=== PATIENT | female | born 1965 | race Caucasian/White ===

== ENCOUNTER 2017-06-10 13:45 | Emergency (ER) | payer OTHER ==
[2017-06-10 13:54] VITALS: BP 134/86; PULSE 80; RESP 20; TEMP 98.3
--- NOTE | 2017-06-10 14:21 | XR ---
EXAMINATION TYPE: XR finger LT DATE OF EXAM: 06/10/2017 COMPARISON: NONE HISTORY: Left thumb pain. TECHNIQUE: 3 views of left thumb are acquired. FINDINGS: There is no acute fracture or dislocation seen. The joint spaces are preserved. Overlying s oft tissue is unremarkable. IMPRESSION: No acute fracture or dislocation is evident.
--- NOTE | 2017-06-10 14:38 | ED ---
Skin/Abscess/FB HPI - General Chief complaint: Skin/Abscess/Foreign Body Stated complaint: FB in thumb-S Time Seen by Provider: 06/10/17 13:55 Source: patient, RN notes reviewed Mode of arrival: ambulatory Limitations: no limitations - History of Present Illness Initial comments: 52-year-old female presented emergency department to complaint of left thumb pain, possible infection. Patient was sent from [facility] for x-rays and further treatment. Patient states this started over the weekend after she cleaned on the machine that was filled with metal shavings. states her thumb seems to be swollen there is no obvious area of injury. Patient states her tetanus is up-to-date. Patient reports no fevers no paresthesias. Denies any other complaints. - Related Data Previous Rx's Medication Instructions Recorded Acetaminophen-Codeine 300-30mg 1 tab PO Q4H PRN #20 tablet 06/10/17 [Tylenol #3] Ibuprofen [Motrin] 600 mg PO Q8HR PRN #30 tab 06/10/17 Sulfamethox-Tmp 800-160Mg [Bactrim 1 each PO Q12HR #20 tab 06/10/17 Ds] Allergies Allergy/AdvReac Type Severity Reaction Status Date / Time amoxicillin [From Augmentin] Allergy Rash/Hives Verified 06/10/17 13:54 clavulanic acid Allergy Rash/Hives Verified 06/10/17 13:54 [From Augmentin] Review of Systems ROS Statement: Those systems with pertinent positive or pertinent negative responses have been documented in the HPI. ROS Other: All systems not noted in ROS Statement are negative. Past Medical History Past Medical History: No Reported History History of Any Multi-Drug Resistant Organisms: None Reported Additional Past Surgical History / Comment(s): neck surgery Past Psychological History: No Psychological Hx Reported Smoking Status: Current every day smoker Past Alcohol Use History: Occasional Past Drug Use History: None Reported General Exam Limitations: no limitations General appearance: alert, in no apparent distress Head exam: Present: atraumatic, normocephalic, normal inspection Respiratory exam: Present: normal lung sounds bilaterally. Absent: respiratory distress, wheezes, rales, rhonchi, stridor Cardiovascular Exam: Present: regular rate, normal rhythm, normal heart sounds. Absent: systolic murmur, diastolic murmur, rubs, gallop, clicks Extremities exam: Present: other (Left thumb there is tenderness to the dorsal aspect there is no obvious injury or openings. There is no localized abscess. Thumb is neurovascularly intact patient does have tenderness but has full range of motion) Skin exam: Present: warm, dry, intact, normal color. Absent: rash Course Vital Signs 06/10/17 13:51 Temperature 98.3 F Pulse Rate 80 Respiratory 20 Rate Blood Pressure 134/86 O2 Sat by Pulse 98 Oximetry Medical Decision Making - Medical Decision Making 52-year-old female presents from for left thumb pain, infection. There appears to be cellulitis of left thumb there is no evidence of osteomyelitis there is no streaking of the erythema to left thumb. Patient treated with antibiotics, warm soaks and he medication. Return parameters were discussed. Disposition Clinical Impression: Cellulitis of left thumb, Thumb pain Disposition: HOME SELF-CARE Condition: Stable Instructions: Cellulitis (ED) Additional Instructions: Please return to the Emergency Department if symptoms worsen or any other concerns. Prescriptions: Acetaminophen-Codeine 300-30mg [Tylenol #3] 1 tab PO Q4H PRN #20 tablet PRN Reason: pain Ibuprofen [Motrin] 600 mg PO Q8HR PRN #30 tab PRN Reason: Pain Sulfamethox-Tmp 800-160Mg [Bactrim Ds] 1 each PO Q12HR #20 tab Referrals: None,Stated [Primary Care Provider] - 1-2 days Time of Disposition: 14:38
== END 2017-06-10 15:04 | disposition home or self-care (01) ==
LOC: EC 13:45
DX: L03.012 Cellulitis of left finger (principal); F17.200 Nicotine dependence, unspecified, uncomplicated; Z88.0 Allergy status to penicillin
CPT/HCPCS: 99283

== ENCOUNTER → 2017-06-19 | Outpatient (CLI) | payer OTHER ==
--- NOTE | 2017-06-19 13:30 | XR ---
EXAMINATION TYPE: XR finger LT DATE OF EXAM: 06/19/2017 COMPARISON: Left finger x-ray 9 days ago. HISTORY: Persistent pain and swelling, fingernail is turning yellow. Cellulitis per order. TECHNIQUE: 3 views left thumb are acquired. FINDINGS: There is no acute fracture or dislocation seen. Bandage material overlying left thumb is pr esent distally. No suspicious cortical destruction or periosteal reaction is seen. Joint spaces are m aintained. No suspicious radiodense foreign body is present. IMPRESSION: As above.
== END | disposition home or self-care (01) ==
LOC: RADXRMAIN 13:01
PROVIDERS: ATTEND Emergency Medicine
DX: L03.012 Cellulitis of left finger (principal)

== ENCOUNTER → 2018-01-27 | Outpatient (CLI) | payer BC ==
[2018-01-27 12:08] LABS: HCT 45.9 % (34.0-46.0); HGB 15.1 gm/dL (11.4-16.0); MCH 30.2 pg (25.0-35.0); MCHC 32.8 g/dL (31.0-37.0); MCV 91.9 fL (80.0-100.0); Mean Platelet Volume 7.1; Platelet Count 287 k/uL (150-450); RBC 4.99 m/uL (3.80-5.40); RDW 13.2 % (11.5-15.5); WBC 6.8 k/uL (3.8-10.6)
[2018-01-27 12:17] LABS: Partial Thromboplastin Time 23.8 sec (22.0-30.0); Prothrombin Time 9.8 sec (9.0-12.0)
[2018-01-27 12:18] LABS: Appearance,Urine Clear (Clear); Bilirubin,Urine Negative (Negative); Blood,Urine Small (Negative); Color,Urine Light Yellow; Glucose,Urine (UA) Negative (Negative); Ketones,Urine Negative (Negative); Leukocyte Esterase,Urine Negative (Negative); Mucus,Urine Rare /hpf; Nitrite,Urine Negative (Negative); Protein,Urine Negative (Negative); Specific Gravity,Urine 1.007 (1.001-1.035); Squamous Epithelial Cell,Urine 3 /hpf (0-4); Urobilinogen,Urine <2.0 mg/dL (<2.0)
[2018-01-27 12:19] LABS: ALT 29 U/L (9-52); AST 24 U/L (14-36); Albumin 3.8 g/dL (3.5-5.0); Alkaline Phosphatase 82 U/L (38-126); Anion Gap 6 mmol/L; Blood Urea Nitrogen 12 mg/dL (7-17); Calcium 9.6 mg/dL (8.4-10.2); Carbon Dioxide 27 mmol/L (22-30); Chloride 107 mmol/L (98-107); Glucose 97 mg/dL (74-99); Potassium 4.9 mmol/L (3.5-5.1); Sodium 140 mmol/L (137-145); Total Bilirubin 0.8 mg/dL (0.2-1.3); Total Protein 6.7 g/dL (6.3-8.2)
== END | disposition home or self-care (01) ==
LOC: LABPAT 10:37
PROVIDERS: ATTEND Orthopaedic Surgery
DX: Z01.818 Encounter for other preprocedural examination (principal); Z01.812 Encounter for preprocedural laboratory examination
CPT/HCPCS: 80053; 81001; 85027; 85610; 85730; 87070; 93005

== ENCOUNTER 2018-02-02 10:23 | Inpatient (IN) | payer BC ==
[2018-01-26 11:45] VITALS: BMI 27.4
[~2018-02-02 10:23] MED LIST: ACETAMINOPHEN TAB 500 MG TAB PO ONE; DEXAMETHASONE SOD PHOSPHATE 10 MG/ML 1 ML VIAL IV ONE; LIDOCAINE 1% 20 ML VIAL (10MG/ML) FOR IV START INTRADERMA PRN; MIDAZOLAM 2 MG/2 ML VIAL IV PRN; ONDANSETRON 4 MG/2 ML VIAL IVP ONE; TRANEXAMIC ACID 1,000 MG in SODIUM CHLORIDE 0.9% 50 ML IVPB ONE; ceFAZolin IN SWFI 2 GM/20 ML SYRINGE IVP ONE; fentaNYL (PF) 50 MCG/ML 2 ML AMP IV PRN
[2018-02-02 13:38] VITALS: RESP 16
[2018-02-02] MEDS ORDERED: ACETAMINOPHEN TAB 325 MG TAB PO ONE (13:54)
[2018-02-02] MEDS: LACTATED RINGERS 1,000 ML IV SCH ×4 (14:02→20:29)
[2018-02-02] MEDS ORDERED: ROPIVACAINE 246.25 MG, EPINEPHrine 0.5 MG, KETOROLAC 30 MG, cloNIDine HCL/PF 80 MCG, WA... MISCELLANE ONE ×5 (14:47)
[2018-02-02] MEDS ORDERED: ceFAZolin 3,000 MG in SODIUM CHLORIDE 0.9% IRRIGATIO 3,000 ML IRRIGATION ONE (16:25)
--- NOTE | 2018-02-02 17:26 | P.OP ---
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 ANESTHESIA: Spinal ESTIMATED BLOOD LOSS: 50 ml. BUILDING PRESSURE WASHER: Gabby Williamson PA-C (assistance with: patient positioning, retraction, exposure, hemostasis, leg positioning, implantation, irrigation, closure, dressing) COMPLICATIONS: None apparent. COMPONENTS IMPLANTED: Persona system from [employer] INDICATIONS: Munira is a 52 year old female with a history of left knee osteoarthritis. She has undergone what sounds like ACL reconstruction several decades ago at the age of 16. Evidently some lateral meniscal work was done too , as she has gone on to develop severe lateral compartment arthritis and genu valgum. Conservative treatment has been tried and has been unsuccessful in controlling symptoms adequately. The operation of knee replacement has been discussed at length in the office, as well as potential risks and complications. These are inclusive of, but not limited to: bleeding, infection , scarring, discomfort, blood vessel and nerve damage, need for further surgery , failure to relieve symptoms, persistence, recurrence, or worsening of problems , loosening, dislocation, wear, blood clot, pulmonary embolism, , gait dysfunction, stiffness, and other risks as discussed in the office. The patient elects to proceed and the consent form has been signed. PROCEDURE: The patient was taken to the operating room and positioned on the operating room table in the supine position. Anesthesia was initiated. Care was taken to make sure that all pressure points were adequately padded. The operative lower extremity was prepped and draped in the usual aseptic fashion using ChloraPrep. Ioban drape was used for the case and the patient received intravenous antibiotics within one hour of the incision. A pneumotourniquet and leg miller were used for the case. The limb was exsanguinated with an Esmarch bandage and the tourniquet was inflated to 350 mmHg. Time-out was called confirming the patient's identity, side, procedure and administration of antibiotics and tranexamic acid, 1 g IV. The incision was then created midline directly over the knee, carried down through skin and into the subcutaneous tissues and down to fascia. Full thickness subcutaneous medial flap was developed. Medial parapatellar arthrotomy was performed and the interior of the knee was inspected. There was end-stage osteoarthritis of the knee especially in the patellofemoral and lateral compartments with a mild to moderate genu valgum type deformity. The fat pad was excised and proximal medial release on the tibia was completed using meticulous dissection and a curved osteotome. The anterior cruciate ligament was taken down. Note was made of significant attrition of the anterior and significant degenerative appearance of the posterior cruciate ligaments. The exposure was excellent. The knee was flexed 90 degrees and the patella was everted. A spot was chosen on the femur approximately 1 cm anterior to the posterior cruciate ligament insertion and an intramedullary hole was created within the femur. The intramedullary guide was then set to 5 degrees of valgus. The distal cutting block was attached and pinned into position. An appropriate amount of distal femoral resection was set. The oscillating saw was then used to make the distal femoral cut. This cut was confirmed to be flat with the flat end of an osteotome. The retractors were placed around the tibia and the tibial surface was addressed. The angle and depth of resection was adjusted using an extramedullary cutting guide. The guide had a built-in 3 degree posterior slope cut. Once the cutting guide was adjusted appropriately and in line with the axis of the tibia and confirmed to be in good position in relation to the second metatarsal and transmalleolar axis, the tibial cut was then created with protection of the posterior neurovascular structures and the collateral ligaments. The tibial cut surface was removed and sized. Femoral sizing was then accomplished using anterior referencing. Care was taken to analyze the posterior condyles for signs of deficiency or severe wear, and adjustments to the guide were made, as appropriate. 3 degree external rotation pins were placed. The cutting jig for the femur was applied to these pins. The planned cuts were further analyzed prior to performing them with the oscillating saw. No femoral notching was produced. Bone fragments were removed and the cut surfaces were finished, as necessary, with a reciprocating saw. Spacer block technique was then used to confirm that the flexion and extension gaps were equal. Soft tissue releases and adjustment of the tibial and/or femoral cuts were made, as necessary, until the gaps were equal. This included release of the posterior cruciate ligament, which was tight in this patient. The femur was then further finished for a posterior cruciate ligament substituting component. Patellar resurfacing was performed using a reamer. The size of the required patellar component was estimated and the patellar surface was then reamed down to a residual thickness which would recreate the [place] thickness with the component. The exact placement of the patellar component was adjusted for position based on preoperative x-rays and intraoperative findings. Prior to placing trial components, anesthetic solution consisting of ropivicaine with epinephrine, ketorolac, and clonidine was injected carefully and methodically in a grid pattern using aspiration technique into the soft tissue around the knee circumferentially, starting with the deeper tissues first and progressing to fascia, and then finally the skin/subcutaneous tissue. Particular care was taken when injecting the posterior capsule. The trial components were inserted. The tibial tray was allowed to self center and the patella was noted to track very well. The position of the tibial component was marked and the tibia was then finished for a stemmed tibial component. Cement was mixed on the back table and applied to the final components. Trial components were removed and the cut surfaces of the bone were pulse lavaged thoroughly and dried. Cement was then applied to the tibial surface and pressurized into the surface using finger pressurization technique. The tibial component was then applied and excess cement was removed after it was impacted securely and noted to be flush with the cut surface. In similar fashion, the cement was applied to the cut femoral surface, pressurized in using finger pressurization and the component was impacted into place. Excess cement was removed. The polyethylene spacer was then implanted and locked into position. The patellar component was then applied in similar technique and a patellar clamp was used to hold the patella in place as the cement hardened. Once the cement had fully hardened, the knee was reinspected. Any other cement extrusion was removed and final kinematic testing showed range of motion from 0 to 130 degrees with excellent stability, both medially and laterally and appropriate alignment of the leg. Patellar tracking was excellent. The knee was then thoroughly pulse lavaged with normal saline. The tourniquet was deflated and hemostasis was obtained with electrocautery and IV tranexamic acid, 1 g given prior to inflation of the tourniquet and another gram given at the time of closure. Closure was with #2 Ethibond in the fascia and supplemented with #2 Quill, 2-0 Vicryl suture was used for the subcutaneous tissues and 3-0 Quill for the skin. Dermabond/Steri-Strips were then applied. A lightly compressive dressing was applied using Webril and an Omero wrap. The patient was then transferred to [facility] and taken to the recovery room in stable condition. Sponge and needle counts were correct.
[2018-02-02] MEDS ORDERED: LACTATED RINGERS 1,000 ML IV ONE (17:30)
[2018-02-02] MEDS ORDERED: NA PHOS,M-B/NA PHOS,DI-BA 133 ML ENEMA RECTAL PRN (18:04)
[2018-02-02] MEDS ORDERED: NALOXONE 0.4 MG/ML 1 ML VIAL IV PRN (18:04)
[2018-02-02] MEDS ORDERED: ONDANSETRON 4 MG/2 ML VIAL IVP PRN (18:04)
[2018-02-02] MEDS ORDERED: MAGNESIUM HYDROXIDE 2,400 MG/10 ML CUP PO PRN (18:04)
[2018-02-02] MEDS ORDERED: HYDROcodone/APAP 5-325MG 1 EACH TAB PO PRN (18:04)
[2018-02-02] MEDS ORDERED: HYDROmorphone 1 MG/ML 1 ML SYRINGE IVP PRN ×3 (18:04)
--- NOTE | 2018-02-02 19:08 | XR ---
Left knee HISTORY: Status post left knee arthroplasty 2 views of the left knee Patient is post left knee arthroplasty. Alignment is anatomic. Lucency in the soft tissues is compati ble with postop state. Small ossific densities in the soft tissues is likely postoperative. IMPRESSION: Orthopedic follow-up.
[2018-02-02] MEDS ORDERED: IPRATROPIUM-ALBUTEROL 3 ML NEB INHALATION PRN (19:19)
[2018-02-02] MEDS: IPRATROPIUM-ALBUTEROL 3 ML NEB INHALATION SCH (20:23)
[2018-02-02] MEDS: PANTOPRAZOLE 40 MG/10 ML VIAL IVP SCH (20:50)
[2018-02-02] MEDS: HYDROcodone/APAP 5-325MG 1 EACH TAB PO PRN (20:52)
[2018-02-02] MEDS: NICOTINE 14MG/24HR PATCH TRANSDERM SCH (20:54)
[2018-02-02] MEDS: hydrOXYzine PAMOATE 25 MG CAP PO PRN (20:54)
[2018-02-02] MEDS ORDERED: SENNOSIDES-DOCUSATE SODIUM 1 EACH TAB PO SCH (21:00)
[2018-02-02] MEDS ORDERED: TEMAZEPAM 15 MG CAP PO PRN (22:00)
[2018-02-02] MEDS: ceFAZolin IN SWFI 2 GM/20 ML SYRINGE IVP SCH (23:44)
[2018-02-03] MEDS: LACTATED RINGERS 1,000 ML IV SCH ×3 (05:16→07:44)
[2018-02-03 07:15] LABS: Basophils % (A) 0 %; Eosinophils % (A) 0 %; HCT 39.9 % (34.0-46.0); Lymphocytes # (A) 1.2 k/uL (1.0-4.8); Lymphocytes % (A) 9 %; MCHC 32.6 g/dL (31.0-37.0); MCV 92.1 fL (80.0-100.0); Mean Platelet Volume 7.3; Monocytes # (A) 0.3 k/uL (0-1.0); Monocytes % (A) 2 %; Neutrophils # (A) 12.5 k/uL (1.3-7.7); Neutrophils % (A) 88 %; Platelet Count 265 k/uL (150-450); RBC 4.33 m/uL (3.80-5.40); RDW 13.1 % (11.5-15.5); WBC 14.1 k/uL (3.8-10.6)
[2018-02-03] MEDS: PANTOPRAZOLE 40 MG/10 ML VIAL IVP SCH (07:39)
[2018-02-03] MEDS: ceFAZolin IN SWFI 2 GM/20 ML SYRINGE IVP SCH (07:40)
[2018-02-03] MEDS: NICOTINE 14MG/24HR PATCH TRANSDERM SCH (07:44)
[2018-02-03 08:18] VITALS: BP 120/80; TEMP 98
[2018-02-03] MEDS: IPRATROPIUM-ALBUTEROL 3 ML NEB INHALATION SCH ×2 (08:39→12:44)
--- NOTE | 2018-02-03 08:40 | P.DS ---
Providers Date of admission: 02/02/18 13:02 Expected date of discharge: 02/03/18 Attending physician: Baltazar Munoz Consults: 02/02/18 18:04 Consult Physician Routine Consulting Provider: Tomer Evans Consult Reason/Comments: Medical management Do you want consulting provider notified?: Yes Primary care physician: Stated None - Discharge Diagnosis(es) (1) Osteoarthritis of left knee Current Visit: Yes Status: Acute (2) Status post total left knee replacement Current Visit: Yes Status: Acute Hospital Course: This is a 52-year-old female last seen in our office with complaints of left knee pain. Patient has known history of degenerative arthritis of the left knee and presented to discuss options. After discussion and consideration, the patient elected to proceed with a left total knee arthroplasty. Patient was seen preoperatively, and medically cleared for surgery by her primary care physician. Patient was admitted to [facility] underwent left total knee arthroplasty on 02/02/[address] Munoz. The procedure was performed without complications or sequelae. The patient is seen and evaluated at bedside today. Pain is well-controlled. Patient has no new complaints today and denies any fevers, chills, nausea, vomiting, or shortness of breath. Vital signs are stable. Dressing is clean dry and intact. Incision looks fine with no erythema or active drainage. Calf is soft and nontender. Patient has full foot and ankle motion without difficulty. Patient's left lower extremity is neurovascularly intact. The patient is orthopedically stable for discharge today. Pertinent Studies: Laboratory Tests 02/03/18 06:38 WBC 14.1 H RBC 4.33 Hgb 13.0 Hct 39.9 Neutrophils # 12.5 H Patient Condition at Discharge: Stable Plan - Discharge Summary Discharge Rx Participant: Yes New Discharge Prescriptions: New HYDROcodone/APAP 5-325MG [[place] 5-325] 1 - 2 each PO Q4-6H PRN #50 tab PRN Reason: Pain Rivaroxaban [Xarelto] 10 mg PO DAILY #5 tab Sennosides-Docusate Sodium [Senokot-S] 1 tab PO BID #60 tablet Aspirin [Adult Low Dose Aspirin EC] 81 mg PO DAILY #1 tablet.dr Harris Action Ibuprofen [Motrin] 600 mg PO Q8HR PRN #30 tab PRN Reason: Pain oxyCODONE HCL/ACETAMINOPHEN [Percocet 10-325 mg] 1 tab PO DAILY PRN PRN Reason: Pain Multivitamins, Thera [Multivitamin (formulary)] 1 tab PO DAILY Ranitidine HCl 150 mg PO DAILY PRN PRN Reason: Heartburn Discharge Medication List Ibuprofen [Motrin] 600 mg PO Q8HR PRN #30 tab 06/10/17 [Rx] Multivitamins, Thera [Multivitamin (formulary)] 1 tab PO DAILY 01/26/18 [History ] Ranitidine HCl 150 mg PO DAILY PRN 01/26/18 [History] oxyCODONE HCL/ACETAMINOPHEN [Percocet 10-325 mg] 1 tab PO DAILY PRN 01/26/18 [ History] Aspirin [Adult Low Dose Aspirin EC] 81 mg PO DAILY #1 tablet.dr 02/02/18 [Rx] HYDROcodone/APAP 5-325MG [[place] 5-325] 1 - 2 each PO Q4-6H PRN #50 tab 02/02/18 [Rx] Rivaroxaban [Xarelto] 10 mg PO DAILY #5 tab 02/02/18 [Rx] Sennosides-Docusate Sodium [Senokot-S] 1 tab PO BID #60 tablet 02/02/18 [Rx] Follow up Appointment(s)/Referral(s): Gabby Williamson, PAC [PHYSICIAN TAKE AWAY WORKER] - 2 Weeks Ambulatory/Diagnostic Orders: Continuous Passive Motion (CPM) Machine [DME.AMB1] Time Frame: 3 Weeks, Facility : [facility], Location: Case Management Activity/Diet/Wound Care/Special Instructions: May bear wt as tolerated. Take Xarelto daily X 5days, then begin ASA 81mg daily. CPM 5-6h daily. May shower if no drainage from incision. Discharge Disposition: HOME WITH HOME HEALTH SERVICES
[2018-02-03 08:43] VITALS: PULSE 88
[2018-02-03] MEDS ORDERED: RIVAROXABAN 10 MG TAB PO SCH (09:00)
[2018-02-03] MEDS ORDERED: MELOXICAM 7.5 MG TAB PO SCH (09:00)
[2018-02-03] MEDS: hydrOXYzine PAMOATE 25 MG CAP PO PRN (11:23)
[2018-02-03] MEDS: HYDROcodone/APAP 5-325MG 1 EACH TAB PO PRN (11:23)
[2018-02-03] MEDS ORDERED: MULTIVITAMINS, THERA 1 EACH TAB PO SCH (12:00)
--- NOTE | 2018-02-03 13:18 | P.CONS ---
History of Present Illness - Reason for Consult Leukocytosis - History of Present Illness Pleasant 52-year-old female admitted the for elective left knee arthroplasty successfully underwent surgery patient denied dysuria nausea vomiting patient doesn't have a drain in place patient denied any cough runny nose. There is no evidence of sepsis leukocytosis secondary to surgery and reactive in nature no further intervention is necessary patient is medically stable to be discharged. Patient the did pass gas did not move her bowel yet Review of Systems REVIEW OF SYSTEMS: CONSTITUTIONAL: No fever, no malaise, no fatigue. HEENT: No recent visual problems or hearing problems. Denied any sore throat. CARDIOVASCULAR: No chest pain, orthopnea, PND, no palpitations, no syncope. PULMONARY: No shortness of breath, no cough, no hemoptysis. GASTROINTESTINAL: No diarrhea, no nausea, no vomiting, no abdominal pain. Normoactive bowel sounds. NEUROLOGICAL: No headaches, no weakness, no numbness. HEMATOLOGICAL: Denies any bleeding or petechiae. GENITOURINARY: Denies any burning micturition, frequency, or urgency. MUSCULOSKELETAL/RHEUMATOLOGICAL: Denies any joint pain, swelling, or any muscle pain. ENDOCRINE: Denies any polyuria or polydipsia. The rest of the 14-point review of systems is negative. Past Medical History Past Medical History: GERD/Reflux Additional Past Medical History / Comment(s): migraines, constipation, hx anemia , History of Any Multi-Drug Resistant Organisms: None Reported Past Surgical History: Back Surgery, Orthopedic Surgery Additional Past Surgical History / Comment(s): ACL left knee, 12/26/16-cervical cage and plate,( no limits in neck movement), Past Anesthesia/Blood Transfusion Reactions: Motion Sickness Smoking Status: Current every day smoker - Past Family History Mother Family Medical History: No Reported History Medications and Allergies Home Medications Medication Instructions Recorded Confirmed Type Ibuprofen [Motrin] 600 mg PO Q8HR PRN #30 tab 06/10/17 02/02/18 Rx Multivitamins, Thera [Multivitamin 1 tab PO DAILY 01/26/18 02/02/18 History (formulary)] Ranitidine HCl 150 mg PO DAILY PRN 01/26/18 02/02/18 History oxyCODONE HCL/ACETAMINOPHEN 1 tab PO DAILY PRN 01/26/18 02/02/18 History [Percocet 10-325 mg] Aspirin [Adult Low Dose Aspirin EC] 81 mg PO DAILY #1 tablet. 02/02/18 Rx HYDROcodone/APAP 5-325MG [[place] 1 - 2 each PO Q4-6H PRN #50 tab 02/02/18 Rx 5-325] Rivaroxaban [Xarelto] 10 mg PO DAILY #5 tab 02/02/18 Rx Sennosides-Docusate Sodium 1 tab PO BID #60 tablet 02/02/18 Rx [Senokot-S] Nicotine 21Mg/24Hr Patch [Habitrol] 1 each TRANSDERM DAILY #14 patch 02/03/18 Rx Allergies Allergy/AdvReac Type Severity Reaction Status Date / Time amoxicillin [From Augmentin] Allergy Rash/Hives Verified 02/02/18 18:01 clavulanic acid Allergy Rash/Hives Verified 02/02/18 18:01 [From Augmentin] Physical Exam Vitals: Vital Signs Temp Pulse Pulse Pulse Pulse Resp BP 02/03/18 08:50 88 02/03/18 08:40 88 02/03/18 07:00 98 F 96 16 02/03/18 01:00 98.0 F 78 16 02/03/18 00:29 16 02/02/18 22:37 16 02/02/18 21:00 86 02/02/18 20:45 81 02/02/18 20:30 74 02/02/18 20:25 81 02/02/18 20:15 81 02/02/18 20:00 76 02/02/18 19:45 71 02/02/18 19:30 76 02/02/18 19:15 97.3 F L 82 16 02/02/18 19:04 97.3 F L 82 16 02/02/18 18:53 79 16 02/02/18 18:38 77 16 02/02/18 18:23 75 16 02/02/18 18:08 77 16 02/02/18 17:53 97.7 F 89 16 02/02/18 13:37 97.8 F 70 16 115/78 BP Pulse Ox 02/03/18 08:50 02/03/18 08:40 02/03/18 07:00 120/80 99 02/03/18 01:00 118/76 95 02/03/18 00:29 02/02/18 22:37 02/02/18 21:00 125/84 02/02/18 20:45 126/84 02/02/18 20:30 125/83 02/02/18 20:25 02/02/18 20:15 135/92 02/02/18 20:00 139/89 02/02/18 19:45 137/86 02/02/18 19:30 151/92 02/02/18 19:15 143/92 98 02/02/18 19:04 143/92 98 02/02/18 18:53 139/75 94 L 02/02/18 18:38 114/72 98 02/02/18 18:23 107/68 99 02/02/18 18:08 108/667 98 02/02/18 17:53 107/66 95 02/02/18 13:37 97 Intake and Output 02/02/18 02/03/18 02/03/18 22:59 06:59 14:59 Intake Total 2401 540 430 Output Total 50 Balance 2351 540 430 Intake: IV 1221 Intake, IV Titration 100 Amount Lactated Ringers 1,000 ml 100 @ 100 mls/hr IV .Q10H [facility] Rx#:[id number] Oral 1080 540 430 Output: Estimated Blood Loss 50 Other: Voiding Method Toilet Toilet # Voids 1 2 1 PHYSICAL EXAMINATION: GENERAL: The patient is alert and oriented x3, not in any acute distress. Well developed, well nourished. HEENT: Pupils are round and equally reacting to light. EOMI. No scleral icterus. No conjunctival pallor. Normocephalic, atraumatic. No pharyngeal erythema. No thyromegaly. CARDIOVASCULAR: S1 and S2 present. No murmurs, rubs, or gallops. PULMONARY: Chest is clear to auscultation, no wheezing or crackles. ABDOMEN: Soft, nontender, nondistended, normoactive bowel sounds. No palpable organomegaly. MUSCULOSKELETAL: Deferred to orthopedic surgery EXTREMITIES: No cyanosis, clubbing, or pedal edema. NEUROLOGICAL: Gross neurological examination did not reveal any focal deficits. SKIN: No rashes. Results CBC & Chem 7: 02/03/18 06:38 Labs: Abnormal Lab Results - Last 24 Hours (Table) 02/03/18 Range/Units 06:38 WBC 14.1 H (3.8-10.6) k/uL Neutrophils # 12.5 H (1.3-7.7) k/uL Assessment and Plan Plan: -Left knee arthroplasty: Pain management due to prophylaxis per primary service -Leukocytosis: Reactive secondary to surgery no evidence of infection at this time -Gastroesophageal reflux disease -Nicotine abuse: Counseling was provided
== END 2018-02-03 14:45 | disposition home health service (06) | DRG 470 ==
LOC: 2ORMAIN 13:02 → 4SSUR 17:53
PROVIDERS: ADMIT Orthopaedic Surgery; ATTEND Orthopaedic Surgery
PROC: 0SRD0J9 Replacement of Left Knee Joint with Synthetic Substitute, Cemented, Open Approach (ICD-10-PCS; principal; 2018-02-02 15:20)
DX: M17.12 Unilateral primary osteoarthritis, left knee (principal); M21.062 Valgus deformity, not elsewhere classified, left knee; D72.829 Elevated white blood cell count, unspecified; Z71.6 Tobacco abuse counseling; F17.210 Nicotine dependence, cigarettes, uncomplicated; K21.9 Gastro-esophageal reflux disease without esophagitis; Z79.82 Long term (current) use of aspirin; K59.00 Constipation, unspecified; Z88.0 Allergy status to penicillin; Z79.899 Other long term (current) drug therapy
CPT/HCPCS: 85025; 88300; 94640

== ENCOUNTER → 2019-02-01 | Outpatient (CLI) | payer BC ==
--- NOTE | 2019-02-01 09:58 | MM ---
Reason for exam: screening (asymptomatic). History: Patient is postmenopausal. Physical Findings: A clinical breast exam by your physician is recommended on an annual basis and results should be correlated with mammographic findings. MG Screening Mammo w CAD Bilateral CC and MLO view(s) were taken. No prior studies available for comparison. There are scattered fibroglandular densities. Benign appearing bilateral calcifications. No suspicious abnormality. No significant changes when compared with prior studies. ASSESSMENT: Benign, BI-RAD 2 RECOMMENDATION: Routine screening mammogram of both breasts in 1 year.
== END | disposition home or self-care (01) ==
LOC: RADMAMWWP 08:08
PROVIDERS: ATTEND Family Medicine
DX: Z12.31 Encounter for screening mammogram for malignant neoplasm of breast (principal)
CPT/HCPCS: 77067

== ENCOUNTER → 2020-07-07 | Outpatient (CLI) | payer BC ==
--- NOTE | 2020-07-09 16:58 | XR ---
EXAMINATION TYPE: XR chest 2V DATE OF EXAM: 07/07/2020 COMPARISON: None HISTORY: 55-year-old female R05, cough TECHNIQUE: Frontal and lateral views FINDINGS: The cardiomediastinal silhouette, aorta, and pulmonary vasculature are within normal limits. Before m eals lower lung densities related to overlying soft tissue. ACDF hardware. Focal right apical opacity . No pleural effusion or otherwise any area of airspace disease. IMPRESSION: Focal right apical opacity. While findings could represent a small focal infiltrate, further contrast enhanced CT evaluation recommended to exclude a pulmonary nodule/neoplastic etiology.
== END | disposition home or self-care (01) ==
LOC: RADXRMAIN 10:46
PROVIDERS: ATTEND Nurse Practitioner Family
DX: R91.8 Other nonspecific abnormal finding of lung field (principal)
CPT/HCPCS: 71046

== ENCOUNTER → 2020-07-07 | Outpatient (CLI) | payer BC ==
--- NOTE | 2020-07-07 12:48 | ECHOS ---
STRESS ECHOCARDIOGRAM PROCEDURE: Stress echo. INDICATION: Chest pain. CLINICAL INFORMATION: Baseline EKG shows sinus rhythm, normal axis, normal intervals. Patient exercised on Yadiel protocol for a total of 6 1/2 minutes achieving 7 METS, 83% of predicted maximal heart rate without chest pain or diagnostic ST-segment depression. Baseline echo shows normal left ventricular size, wall motion and systolic function. Postexercise there is normal hyperdynamic response of all segments of myocardium noted. CONCLUSIONS: 1. Limited exercise tolerance. 2. Inconclusive stress echo secondary to inability to attain target heart rate. MMODL / IJN: [id number] /
== END | disposition home or self-care (01) ==
LOC: RADNMMAIN 09:46
PROVIDERS: ATTEND Family Medicine
DX: R07.9 Chest pain, unspecified (principal)
CPT/HCPCS: 93270; 93351